=== PATIENT | male | born 1945 | race Caucasian/White ===

== ENCOUNTER 2019-04-21 12:14 | Observation (INO) | payer MEDICARE, BC ==
[~2019-04-21] VITALS: Ht 175.3 cm; Wt 80.0 kg
[~2019-04-21 12:14] MED LIST: ALLO100T PO; BICA50TA4 PO; CA C1TAB89 PO; CEFU500T66 PO; CHOL2000 PO; HYDR-4353 PO; IBUP-1984 PO; LANS30CA37 PO; METF500T PO; METO50TA7 PO; MORP30TA6 PO; MULT-1085 PO; NOR5T PO; VITA400T10 PO; VITC500T PO; ZOF4T PO
[2019-04-21] MEDS ORDERED: aspirin 81mg tab.chew PO ONE (12:35)
[2019-04-21 13:03] LABS: BASOPHILS % (AUTO) 0.6 % (0-1); EOSINOPHILS # (AUTO) 0.1 X10'3 (0-0.9); EOSINOPHILS % (AUTO) 0.8 % (0-6); HEMATOCRIT 31.2 % (42.0-52.0); HEMOGLOBIN 10.3 g/dl (14.0-17.9); LYMPHOCYTES # (AUTO) 1.3 X10'3 (1.1-4.8); MEAN CORPUSCULAR HEMOGLOBIN 29.9 PG (27.0-31.0); MEAN CORPUSCULAR VOLUME 90.6 FL (78-98); MEAN PLATELET VOLUME 7.5 FL (7.4-10.4); MONOCYTES # (AUTO) 0.5 X10'3 (0-0.9); NEUTROPHILS # (AUTO) 5.8 X10'3 (1.8-7.7); NEUTROPHILS % (AUTO) 74.6 % (42-75); PLATELET COUNT 237 X10'3 (140-440); RED BLOOD COUNT 3.44 X10'6 (4.70-6.10); RED CELL DISTRIBUTION WIDTH 16.3 % (11.5-14.5); WHITE BLOOD COUNT 7.8 X10'3 (4.5-11.0)
[2019-04-21 13:14] LABS: PARTIAL THROMBOPLASTIN TIME 28 SECONDS (22-32)
[2019-04-21 13:17] LABS: ALANINE AMINOTRANSFERASE 20 U/L (12-78); ALBUMIN/GLOBULIN RATIO 0.7 (1.1-1.5); ALKALINE PHOSPHATASE 91 IU/L (46-116); ANION GAP 6 (8-16); ASPARTATE AMINO TRANSFERASE 17 U/L (10-37); BILIRUBIN,TOTAL 0.4 MG/DL (0.1-1.0); BLOOD UREA NITROGEN 20 MG/DL (7-18); BUN/CREATININE RATIO 16.9 (5.4-32.0); CALCIUM 8.9 MG/DL (8.5-10.1); CHLORIDE 101 MMOL/L (99-107); CREATININE 1.18 MG/DL (0.60-1.10); GLUCOSE 129 MG/DL (70-104); POTASSIUM 4.1 MMOL/L (3.5-5.1); SODIUM 136 MMOL/L (135-145); TOTAL CARBON DIOXIDE 29.1 MMOL/L (24-32); TOTAL PROTEIN 7.4 G/DL (6.4-8.2); eGFR 61 ML/MIN
[2019-04-21 13:23] LABS: MAGNESIUM 1.6 MG/DL (1.5-2.4)
[2019-04-21] MEDS ORDERED: DENO120V SQ (13:36)
[2019-04-21] MEDS ORDERED: TRAZ-251 PO (13:36)
[2019-04-21] MEDS ORDERED: AMLO2.5T5 PO (13:36)
[2019-04-21] MEDS ORDERED: FERR325T32 PO (13:36)
[2019-04-21] MEDS ORDERED: PRED5TAB49 PO (13:36)
[2019-04-21] MEDS ORDERED: LEUP30KI3 IM (13:36)
[2019-04-21] MEDS ORDERED: ABIR500T PO (13:36)
[2019-04-21] MEDS ORDERED: CALC-463 PO (13:36)
[2019-04-21] MEDS ORDERED: ONDA8TAB12 PO (13:36)
[2019-04-21] MEDS ORDERED: MORP15TA PO (13:36)
[2019-04-21] MEDS ORDERED: MORP30TA60 PO (13:36)
[2019-04-21] MEDS ORDERED: ondansetron/PF 4mg/2ml inj IV PRN (13:45)
[2019-04-21] MEDS ORDERED: potassium Cl 20 mEq SR tablet PO PRN ×2 (13:45)
[2019-04-21] MEDS ORDERED: acetaminophen 325mg tablet PO PRN ×2 (13:45)
[2019-04-21] MEDS ORDERED: HYDROcodone/acetaminophen 10/325mg tab PO PRN (13:45)
[2019-04-21] MEDS ORDERED: metoprolol tartrate 1mg/ml inj IV PRN (13:45)
[2019-04-21] MEDS ORDERED: metoclopramide 5 mg/ml inj IV PRN (13:45)
[2019-04-21] MEDS ORDERED: nitroGLYCERIN 0.4mg SUBLingual tab SL PRN ×2 (13:45)
[2019-04-21] MEDS ORDERED: potassium CL 10mEq/100ml bag 100 ML IV PRN ×2 (13:45)
[2019-04-21] MEDS ORDERED: magnesium Cl slow-release 64mg tablet PO PRN (13:45)
[2019-04-21] MEDS ORDERED: morphine 2 MG/ML inj. syringe IV PRN ×2 (13:45)
[2019-04-21] MEDS ORDERED: HYDROcodone/acetaminophen 5mg/325mg tablet PO PRN (13:45)
[2019-04-21] MEDS ORDERED: aminophylline 250mg/10ml inj. IV PRN (13:45)
[2019-04-21] MEDS ORDERED: magnesium 4gm in 100ml NS 100 ML IV PRN (13:45)
[2019-04-21] MEDS ORDERED: mag hydrox/Alum hydrox/simeth 30ml oral suspension PO PRN (13:45)
[2019-04-21] MEDS ORDERED: magnesium hydroxide 30ml (MOM) UD suspension PO PRN (13:45)
[2019-04-21] MEDS ORDERED: regadenoson 0.4mg/5ml syringe IV ONE (13:45)
[2019-04-21] MEDS: K and/or MAG REPLACEMENT MC SCH (13:45)
[2019-04-21] MEDS ORDERED: magnesium 2GM in 50ml NS 50 ML IV PRN (13:45)
[2019-04-21] MEDS ORDERED: traZODone 50mg tablet PO PRN (13:50)
[2019-04-21] MEDS ORDERED: glucagon, human recombinant 1mg kit SUBCUT PRN (14:00)
[2019-04-21] MEDS ORDERED: MESSAGE TO PHARMACY PO ONE (14:00)
[2019-04-21] MEDS ORDERED: insulin Lispro (HumaLOG) vial - multi-dose SQ SCH (14:00)
[2019-04-21] MEDS ORDERED: dextrose ORAL solution 15 GM/59 ML bottle PO PRN ×2 (14:00)
[2019-04-21] MEDS ORDERED: dextrose 50%-water 50ml dispensing syringe IV PRN ×2 (14:00)
--- NOTE | 2019-04-21 14:09 | NUR ---
Pt taken to CT
[2019-04-21 14:23] VITALS: BP 144/68
[2019-04-21] MEDS ORDERED: pneumococcal 23-VAL P-sac vacc 25 mcg/0.5ml vial IMVAC ONE (14:55)
--- NOTE | 2019-04-21 15:11 | NUR ---
PAGER ID: [phone] MESSAGE: BRANDON Briones: Is he getting a arnold scan today or tomorrow? YECENIA Lubin Ext [phone]
--- NOTE | 2019-04-21 15:14 | NUR ---
PAGER ID: [phone] MESSAGE: [id number] Nathaniel Anselmo: Is his Katie-scan today or tomorrow? YECENIA Lubin Ext [phone]
[2019-04-21 15:39] LABS: HEMOGLOBIN A1C 7.7 % (4.5-6.2)
--- NOTE | 2019-04-21 18:05 | NUR ---
Patient in room PCU 3016. I have received report from Tristian KEENE and had the opportunity to ask questions and assume patient care.
--- NOTE | 2019-04-21 18:07 | NUR ---
Problems reprioritized. Patient report given, questions answered & plan of care reviewed with Rudy RN.
[2019-04-21 19:00] VITALS: BP 130/53
[2019-04-21] MEDS ORDERED: non-formulary drug (Morphine Sulfate 1 TAB) PO SCH (20:00)
[2019-04-21] MEDS: pantoprazole 40mg Tablet.DR PO SCH (20:30)
[2019-04-21] MEDS: metoprolol succinate 25mg (24-HOUR) SR. Tablet PO SCH (20:31)
[2019-04-21] MEDS: morphine ER 30mg tablet PO SCH (20:31)
[2019-04-21] MEDS: predniSONE 5mg tablet PO SCH (20:31)
[2019-04-21] MEDS: heparin, porcine 5000 units/ml vial SQ SCH (20:35)
[2019-04-21] MEDS: ABIRATERONE ACETATE 500 MG PO SCH (20:38)
[2019-04-21] MEDS ORDERED: amLODIPine 2.5mg tablet PO SCH (21:00)
[2019-04-21] MEDS ORDERED: temazepam 15mg capsule PO PRN (21:00)
[2019-04-21] MEDS ORDERED: insulin glargine (Lantus) pen - multi-dose SQ SCH (21:00)
[2019-04-21 23:00] VITALS: BP 117/59
[2019-04-22] VITALS (11 sets, daily range): BP systolic 105–140; BP diastolic 49–82
[2019-04-22 00:58] LABS: HEMATOCRIT 31.6 % (42.0-52.0); HEMOGLOBIN 10.4 g/dl (14.0-17.9); MEAN CORPUSCULAR HEMOGLOBIN 29.7 PG (27.0-31.0); MEAN CORPUSCULAR HGB CONC 32.9 g/dL (33.0-36.5); MEAN CORPUSCULAR VOLUME 90.1 FL (78-98); MEAN PLATELET VOLUME 7.7 FL (7.4-10.4); PLATELET COUNT 201 X10'3 (140-440); RED BLOOD COUNT 3.51 X10'6 (4.70-6.10); RED CELL DISTRIBUTION WIDTH 16.4 % (11.5-14.5); WHITE BLOOD COUNT 6.3 X10'3 (4.5-11.0)
[2019-04-22 01:09] LABS: ANION GAP 7 (8-16); BLOOD UREA NITROGEN 22 MG/DL (7-18); BUN/CREATININE RATIO 17.1 (5.4-32.0); CALCIUM 9.3 MG/DL (8.5-10.1); CHLORIDE 99 MMOL/L (99-107); CHOL/HDL RATIO 4.1 (0.00-4.99); CHOLESTEROL 153 MG/DL (0-200); CREATININE 1.29 MG/DL (0.60-1.10); GLUCOSE 148 MG/DL (70-104); HDL CHOLESTEROL 37 MG/DL (35-60); LDL CHOLESTEROL 92 MG/DL (50-100); MAGNESIUM 1.7 MG/DL (1.5-2.4); PHOSPHORUS 4.4 MG/DL (2.3-4.5); POTASSIUM 4.8 MMOL/L (3.5-5.1); SODIUM 135 MMOL/L (135-145); TOTAL CARBON DIOXIDE 28.6 MMOL/L (24-32); TRIGLYCERIDES 177 MG/DL (20-135); eGFR 55 ML/MIN
--- NOTE | 2019-04-22 06:00 | NUR ---
Patient in room PCU 3016. I have received report from YECENIA Grant and had the opportunity to ask questions and assume patient care.
--- NOTE | 2019-04-22 06:23 | NUR ---
Problems reprioritized. Patient report given, questions answered & plan of care reviewed with Tristian KEENE.
[2019-04-22] MEDS: morphine ER 30mg tablet PO SCH (07:20)
[2019-04-22] MEDS: pantoprazole 40mg Tablet.DR PO SCH (07:20)
[2019-04-22] MEDS: predniSONE 5mg tablet PO SCH (07:21)
[2019-04-22] MEDS: heparin, porcine 5000 units/ml vial SQ SCH (07:22)
[2019-04-22] MEDS: ABIRATERONE ACETATE 500 MG PO SCH (07:47)
[2019-04-22] MEDS ORDERED: ascorbic acid 500mg tablet PO SCH (08:00)
[2019-04-22] MEDS: K and/or MAG REPLACEMENT MC SCH (08:00)
[2019-04-22] MEDS ORDERED: calcium carbonate/vitamin D3 tablet PO SCH (08:00)
[2019-04-22] MEDS ORDERED: allopurinol 300 MG tablet PO SCH (08:00)
--- NOTE | 2019-04-22 08:18 | NUR ---
PAGER ID: [phone] MESSAGE: BRANDON Nathaniel Briones HR in the 40's most of this morning. Patient is asymptotic. YECENIA Lubin Ext [phone] (Cintia has the phone)
[2019-04-22] MEDS ORDERED: aspirin 325mg tablet PO SCH (08:30)
[2019-04-22] MEDS ORDERED: regadenoson 0.4mg/5ml syringe IV ONE (09:00)
[2019-04-22] MEDS: metoprolol succinate 25mg (24-HOUR) SR. Tablet PO SCH (10:50)
[2019-04-22] MEDS ORDERED: aspirin 81mg tab.chew PO SCH (10:51)
--- NOTE | 2019-04-22 10:52 | NUR ---
Held Toprolol this morning per CT. Attempted to administer when the patient returned, but HR was too low.
--- NOTE | 2019-04-22 13:01 | NUR ---
DM consult: Pt with A1c 7.7 seen at bedside with friend present. Pt reports his BG levels are usually around 100 and he takes his Metformin per rx which is 250 mg BID. Pt also reports he has lost weight which has helped with better DM management. Pt with no questions at this time and denies written DM education. RD contact information provided. Pt endorses a good appetite and denies any food allergies, difficulty chewing/swallowing, or constipation/diarrhea. Pt reports he was unable to get breakfast tray d/t testing and refused lunch tray d/t just having a sandwich. RD reviewed dinner and breakfast tray selections with pt which was relayed to dietary. Will continue to follow. Addendum: 04/22/19 at [address] Amended: Links added.
--- NOTE | 2019-04-22 13:10 | NUR ---
PAGER ID: [phone] MESSAGE: [id number] Nathaniel Briones: Katie was negative. YECENIA Lubin Ext [phone]
[2019-04-22] MEDS ORDERED: iohexol 350MG/ML 100ml bottle IV ONE (15:42)
--- NOTE | 2019-04-22 16:29 | NUR ---
PAGER ID: [phone] MESSAGE: [id number] Nathaniel Briones: CTA was negative for pulmonary embolism. Minimal left lower lobe atelectatic changes. YECENIA Ludwig ext [phone]
[2019-04-22] MEDS ORDERED: ASPI-1265 PO (17:22)
--- NOTE | 2019-04-22 17:49 | NUR ---
Gave patient discharge instructions. Educated on incentive spirometer use, Diabetes management, chest pain, and follow up care. IV and Tele removed.
[2019-05-01] MEDS ORDERED: DENOSUMAB SQ SCH (08:00)
== END 2019-04-22 17:49 | disposition home or self-care (01) ==
LOC: ER 12:16 → PCU 3S 14:25
PROVIDERS: ADMIT Family Medicine; ATTEND Family Medicine
DX: I20.9 Angina pectoris, unspecified (principal); G89.29 Other chronic pain; M10.9 Gout, unspecified; J44.9 Chronic obstructive pulmonary disease, unspecified; R31.9 Hematuria, unspecified; C61 Malignant neoplasm of prostate; C79.51 Secondary malignant neoplasm of bone; E78.00 Pure hypercholesterolemia, unspecified; F02.80 Dementia in other diseases classified elsewhere, unspecified severity, without behavioral disturbance, psychotic disturbance, mood disturbance, and anxiety; I25.2 Old myocardial infarction; Z85.46 Personal history of malignant neoplasm of prostate; Z86.010 Personal history of colon polyps; Z86.73 Personal history of transient ischemic attack (TIA), and cerebral infarction without residual deficits; Z86.74 Personal history of sudden cardiac arrest; Z98.890 Other specified postprocedural states; E11.22 Type 2 diabetes mellitus with diabetic chronic kidney disease; I13.0 Hypertensive heart and chronic kidney disease with heart failure and stage 1 through stage 4 chronic kidney disease, or unspecified chronic kidney disease; N18.9 Chronic kidney disease, unspecified; I50.9 Heart failure, unspecified; D63.1 Anemia in chronic kidney disease; Z96.641 Presence of right artificial hip joint; G30.9 Alzheimer's disease, unspecified; R06.00 Dyspnea, unspecified; M25.551 Pain in right hip; Z23 Encounter for immunization
CPT/HCPCS: 36415; 70450; 71045; 71275; 78452; 80048; 80053; 80061; 82948; 83036; 83735; 83880; 84100; 84443; 84484; 85025; 85027; 85610; 85730; 87081; 90471; 90732; 93005; 93017; 93306; 96372; 99284; A9500; G0378; J1644; J2785; J7512; Q9967; J1815

== ENCOUNTER 2019-10-15 10:13 | Emergency (ER) | payer MEDICARE, BC ==
[~2019-10-15] VITALS: Ht 175.3 cm; Wt 68.6 kg
[~2019-10-15 10:13] MED LIST changes: +ABIR500T PO; +AMLO2.5T5 PO; +ASPI-1265 PO; -BICA50TA4 PO; -CA C1TAB89 PO; +CALC-463 PO; -CEFU500T66 PO; +DENO120V SQ; +FERR325T32 PO; -HYDR-4353 PO; -IBUP-1984 PO; +LEUP30KI3 IM; +MORP15TA PO; -MORP30TA6 PO; +MORP30TA60 PO; -NOR5T PO; +ONDA8TAB65 PO; +PRED5TAB49 PO; +TRAZ-251 PO; -ZOF4T PO
[2019-10-15 10:38] VITALS: BP 109/64
[2019-10-15] MEDS ORDERED: LIDOcaine 1% W/epiNEPHrine 1:200,000 10ml vial IJ ONE (11:10)
[2019-10-15] MEDS ORDERED: CEPH250T PO (11:48)
[2019-10-15] MEDS ORDERED: BACDS PO (11:48)
== END 2019-10-15 12:01 | disposition home or self-care (01) ==
LOC: ER 10:14
DX: L02.214 Cutaneous abscess of groin (principal); I10 Essential (primary) hypertension; E11.9 Type 2 diabetes mellitus without complications; G89.29 Other chronic pain; M10.9 Gout, unspecified; Z98.890 Other specified postprocedural states; Z79.899 Other long term (current) drug therapy; Z79.82 Long term (current) use of aspirin
CPT/HCPCS: 10060; 82948; 99283

== ENCOUNTER 2019-10-29 02:31 | Emergency (ER) | payer MEDICARE, BC ==
[~2019-10-29] VITALS: Ht 175.3 cm; Wt 75.0 kg
[2019-10-29 02:44] VITALS: BP 146/75
== END 2019-10-29 03:17 | disposition home or self-care (01) ==
LOC: ER 02:32
DX: Z48.00 Encounter for change or removal of nonsurgical wound dressing (principal); I10 Essential (primary) hypertension; E11.9 Type 2 diabetes mellitus without complications; G89.29 Other chronic pain; Z98.890 Other specified postprocedural states; Z79.82 Long term (current) use of aspirin; Z79.899 Other long term (current) drug therapy
CPT/HCPCS: 99281

== ENCOUNTER 2019-11-03 10:54 | Day surgery (SDC) | payer MEDICARE, BC ==
[2019-11-03] VITALS (7 sets, daily range): BP systolic 121–134; BP diastolic 66–98
[~2019-11-03] VITALS: Ht 175.3 cm; Wt 81.3 kg
[2019-11-03] MEDS ORDERED: LIDOcaine/PRILOcaine 5gm cream TP ONE (13:40)
== END 2019-11-03 15:20 | disposition home or self-care (01) ==
LOC: SSTAY O 10:54
PROVIDERS: ATTEND Radiology Diagnostic Radiology
DX: R19.09 Other intra-abdominal and pelvic swelling, mass and lump (principal); Z85.46 Personal history of malignant neoplasm of prostate
CPT/HCPCS: 10005; 87070; 87077; 87186; 88173; 88305

== ENCOUNTER 2019-12-11 03:10 | Emergency (ER) | payer MEDICARE, BC ==
[~2019-12-11] VITALS: Ht 175.3 cm; Wt 79.4 kg
[~2019-12-11 03:10] MED LIST changes: -ASPI-1265 PO
[2019-12-11 03:15] VITALS: BP 96/60
[2019-12-11] MEDS ORDERED: ketorolac trometh inj. 60 MG/2 ML VIAL IM ONE (03:30)
[2019-12-11] MEDS ORDERED: CLIN-97 PO (03:33)
[2019-12-15] MEDS ORDERED: AMLO-314 PO (14:19)
[2019-12-15] MEDS ORDERED: DENO120V SQ (14:23)
[2019-12-15] MEDS ORDERED: LEUP30KI3 IM (14:23)
== END 2019-12-11 03:41 | disposition home or self-care (01) ==
LOC: ER 03:11
DX: R19.09 Other intra-abdominal and pelvic swelling, mass and lump (principal); M79.651 Pain in right thigh; I10 Essential (primary) hypertension; E11.9 Type 2 diabetes mellitus without complications; G89.29 Other chronic pain; Z98.890 Other specified postprocedural states; Z79.2 Long term (current) use of antibiotics; Z79.899 Other long term (current) drug therapy
CPT/HCPCS: 96372; 99284; J1885; 99283

== ENCOUNTER 2020-06-10 09:55 | Emergency (ER) | payer MEDICARE, BC ==
[~2020-06-10] VITALS: Ht 175.3 cm; Wt 79.6 kg
[~2020-06-10 09:55] MED LIST changes: -AMLO2.5T5 PO
[2020-06-10] MEDS ORDERED: normal saline 1000ML IV soln IVB ONE (10:50)
[2020-06-10 10:59] LABS: CLARITY,URINE CLOUDY (Clear); COLOR,URINE YELLOW (Yellow); GLUCOSE, URINE NEGATIVE (Neg); KETONES,URINE NEGATIVE (Neg); LEUKOCYTE ESTERASE ,URINE LARGE (Neg); NITRITES, URINE NEGATIVE (Neg); OCCULT BLOOD,URINE LARGE (Neg); PROTEIN,URINE 100 mg/dl (Neg)
[2020-06-10 11:02] LABS: UA COLLECTION TYPE URINAL
[2020-06-10 11:03] VITALS: BP 105/52
[2020-06-10 11:03] LABS: WBC,URINE 50-100 /HPF (0-4)
[2020-06-10 11:04] LABS: BACTERIA,URINE 2+ /HPF (Neg); MUCUS STRANDS FEW /LPF (Neg); SQUAMOUS EPITHELIAL CELL,UR MODERATE /LPF (FEW)
[2020-06-10 11:20] LABS: EOSINOPHILS # (AUTO) 0.1 X10'3 (0-0.9); LYMPHOCYTES # (AUTO) 1.3 X10'3 (1.1-4.8); MEAN PLATELET VOLUME 7.3 FL (7.4-10.4); MONOCYTES # (AUTO) 0.4 X10'3 (0-0.9)
[2020-06-10 11:22] LABS: BASOPHILS % (AUTO) 0.8 % (0-1); EOSINOPHILS % (AUTO) 0.9 % (0-6); HEMATOCRIT 23.9 % (42.0-52.0); LYMPHOCYTES % (AUTO) 23.5 % (21-51); MEAN CORPUSCULAR HEMOGLOBIN 28.7 PG (27.0-31.0); MEAN CORPUSCULAR HGB CONC 33.7 g/dL (33.0-36.5); MEAN CORPUSCULAR VOLUME 85.3 FL (78-98); MONOCYTES % (AUTO) 6.7 % (2-12); NEUTROPHILS # (AUTO) 3.9 X10'3 (1.8-7.7); NEUTROPHILS % (AUTO) 68.1 % (42-75); PLATELET COUNT 195 X10'3 (140-440); RED CELL DISTRIBUTION WIDTH 18.8 % (11.5-14.5); WHITE BLOOD COUNT 5.7 X10'3 (4.5-11.0)
[2020-06-10 11:37] LABS: ANISOCYTOSIS 2+; PLATELET ESTIMATE NORMAL
[2020-06-10 11:40] LABS: ANION GAP 4 (8-16); BLOOD UREA NITROGEN 33 MG/DL (7-18); CHLORIDE 95 MMOL/L (99-107); CREATININE 1.95 MG/DL (0.60-1.10); GLUCOSE 104 MG/DL (70-104); POTASSIUM 4.6 MMOL/L (3.5-5.1); SODIUM 128 MMOL/L (135-145); TOTAL CARBON DIOXIDE 29.1 MMOL/L (24-32)
[2020-06-10 11:41] LABS: ALANINE AMINOTRANSFERASE 7 U/L (12-78); ALBUMIN 2.8 G/DL (3.4-5.0); ALBUMIN/GLOBULIN RATIO 0.7 (1.1-1.5); ALKALINE PHOSPHATASE 111 IU/L (46-116); ASPARTATE AMINO TRANSFERASE 25 U/L (10-37); BILIRUBIN,TOTAL 0.3 MG/DL (0.1-1.0); BUN/CREATININE RATIO 16.9 (5.4-32.0); CALCIUM 8.9 MG/DL (8.5-10.1); TOTAL PROTEIN 6.9 G/DL (6.4-8.2); eGFR 34 ML/MIN
[2020-06-10 11:42] LABS: PARTIAL THROMBOPLASTIN TIME 30 SECONDS (22-32)
[2020-06-10] MEDS ORDERED: CefTRIAXone 2gm/D5W 50ml BAG 50 ML IV ONE (11:50)
[2020-06-10] MEDS ORDERED: ciprofloxacin 250mg tablet PO ONE (12:35)
[2020-06-10] MEDS ORDERED: CIPR-230 PO (12:43)
[2020-06-10] MEDS ORDERED: ondansetron 4mg rapidly disintigrating tab PO ONE ×2 (12:45→13:15)
--- NOTE | 2020-06-15 09:58 | NUR ---
left message for pt. to call back. pt. called back has already seen his pmd. dr. haider. who changed his antibiotic to doxycycline that is working for him... no other action to be taken..
== END 2020-06-10 13:27 | disposition home or self-care (01) ==
LOC: ER 09:55
DX: N12 Tubulo-interstitial nephritis, not specified as acute or chronic (principal); I50.9 Heart failure, unspecified; N18.9 Chronic kidney disease, unspecified; E78.00 Pure hypercholesterolemia, unspecified; G89.29 Other chronic pain; N17.9 Acute kidney failure, unspecified; E11.22 Type 2 diabetes mellitus with diabetic chronic kidney disease; I13.2 Hypertensive heart and chronic kidney disease with heart failure and with stage 5 chronic kidney disease, or end stage renal disease; R42 Dizziness and giddiness; Z85.9 Personal history of malignant neoplasm, unspecified; Z98.890 Other specified postprocedural states; Z79.899 Other long term (current) drug therapy
CPT/HCPCS: 36415; 71045; 74176; 80053; 81001; 83605; 83880; 84145; 84484; 85025; 85610; 85730; 87040; 87077; 87088; 87186; 93005; 96361; 96365; 99285; J0696; J7030; 85008

== ENCOUNTER 2020-12-28 09:43 | Emergency (ER) | payer MEDICARE, BC ==
[~2020-12-28] VITALS: Ht 170.2 cm; Wt 79.5 kg
[2020-12-28 09:58] VITALS: BP 118/62
[2020-12-28 10:18] LABS: CLARITY,URINE TURBID (Clear); COLOR,URINE YELLOW (Yellow); GLUCOSE, URINE NEGATIVE (Neg); KETONES,URINE NEGATIVE (Neg); LEUKOCYTE ESTERASE ,URINE LARGE (Neg); NITRITES, URINE NEGATIVE (Neg); OCCULT BLOOD,URINE LARGE (Neg); PROTEIN,URINE 30 mg/dl (Neg); UROBILINOGEN,URINE 0.2 E.U/dL (0.2-1.0)
[2020-12-28 10:23] LABS: UA COLLECTION TYPE NON-SPECIFIED
[2020-12-28 10:29] LABS: WBC,URINE TNTC /HPF (0-4)
[2020-12-28 10:30] LABS: BACTERIA,URINE 1+ /HPF (Neg); MUCUS STRANDS NONE SEEN /LPF (Neg); RBC,URINE 20-50 /HPF (0-2); SQUAMOUS EPITHELIAL CELL,UR FEW /LPF (FEW); TRANSITIONAL EPI CELLS,URINE FEW /HPF; WBC CLUMPS,URINE MANY /HPF (NEGATIVE); YEAST MODERATE /HPF (NEGATIVE)
[2020-12-28] MEDS ORDERED: CefTRIAXone 1000mg IM Kit (w/lidocaine diluent) IM ONE (10:40)
[2020-12-28] MEDS ORDERED: CEPH-585 PO (10:40)
--- NOTE | 2020-12-28 11:10 | NUR ---
Bladder scan 130ml. Dr. Goff aware.
== END 2020-12-28 11:24 | disposition home or self-care (01) ==
LOC: ER 09:43
DX: N39.0 Urinary tract infection, site not specified (principal); R11.0 Nausea; E78.00 Pure hypercholesterolemia, unspecified; I10 Essential (primary) hypertension; E11.9 Type 2 diabetes mellitus without complications; G89.29 Other chronic pain; M10.9 Gout, unspecified; Z85.9 Personal history of malignant neoplasm, unspecified; Z98.890 Other specified postprocedural states; Z79.2 Long term (current) use of antibiotics; Z79.899 Other long term (current) drug therapy
CPT/HCPCS: 81001; 87088; 96372; 99284; J0696

== ENCOUNTER 2021-02-20 09:57 | Day surgery (SDC) | payer MEDICARE, BC ==
[2021-02-19 12:03] LABS: EOSINOPHILS # (AUTO) 0.1 X10'3 (0-0.9); EOSINOPHILS % (AUTO) 1.5 % (0-6); HEMOGLOBIN 8.8 g/dl (14.0-17.9); LYMPHOCYTES # (AUTO) 1.7 X10'3 (1.1-4.8); MONOCYTES # (AUTO) 0.4 X10'3 (0-0.9); NEUTROPHILS % (AUTO) 74.6 % (42-75)
[2021-02-19 12:04] LABS: BASOPHILS # (AUTO) 0.1 X10'3 (0-0.2); BASOPHILS % (AUTO) 0.6 % (0-1); HEMATOCRIT 27.3 % (42.0-52.0); MEAN CORPUSCULAR HEMOGLOBIN 27.3 PG (27.0-31.0); MEAN CORPUSCULAR HGB CONC 32.3 g/dL (33.0-36.5); MEAN CORPUSCULAR VOLUME 84.3 FL (78-98); MEAN PLATELET VOLUME 7.5 FL (7.4-10.4); MONOCYTES % (AUTO) 4.3 % (2-12); NEUTROPHILS # (AUTO) 6.9 X10'3 (1.8-7.7); PLATELET COUNT 301 X10'3 (140-440); RED BLOOD COUNT 3.23 X10'6 (4.70-6.10); RED CELL DISTRIBUTION WIDTH 16.7 % (11.5-14.5); WHITE BLOOD COUNT 9.2 X10'3 (4.5-11.0)
[2021-02-19 12:19] LABS: ALBUMIN 2.9 G/DL (3.4-5.0); ANION GAP 8 (8-16); BLOOD UREA NITROGEN 22 MG/DL (7-18); BUN/CREATININE RATIO 21.2 (5.4-32.0); CHLORIDE 101 MMOL/L (99-107); CREATININE 1.04 MG/DL (0.60-1.10); GLUCOSE 84 MG/DL (70-104); POTASSIUM 4.5 MMOL/L (3.5-5.1); SODIUM 139 MMOL/L (135-145); eGFR 70 ML/MIN
[2021-02-19 12:23] LABS: PARTIAL THROMBOPLASTIN TIME 29 SECONDS (22-32)
[~2021-02-20] VITALS: Ht 170.2 cm; Wt 81.4 kg
[2021-02-20] VITALS (11 sets, daily range): BP systolic 125–146; BP diastolic 62–79
[~2021-02-20 09:57] MED LIST changes: +CEPH-585 PO
[2021-02-20] MEDS ORDERED: normal saline 1,000 ML IV SCH ×2 (10:30→15:05)
[2021-02-20] MEDS ORDERED: LORazepam 0.5 MG tablet PO PRN (10:30)
[2021-02-20] MEDS ORDERED: diphenhydrAMINE 25mg capsule PO PRN (10:30)
[2021-02-20] MEDS ORDERED: AMLO10TA PO (11:08)
[2021-02-20] MEDS ORDERED: midazolam 1 mg/ML 2ml injection ONE (11:26)
[2021-02-20] MEDS ORDERED: fentaNYL/PF 50MCG/1 ML 2ML syringe ONE (11:26)
[2021-02-20] MEDS ORDERED: verapamil 2.5 mg/ml inj IV ONE (11:27)
[2021-02-20] MEDS ORDERED: iohexol 350 MG/ML 50ML vial IV ONE ×2 (11:27→13:02)
[2021-02-20] MEDS ORDERED: LIDOcaine 1% (10mg/ml)w/preservative injection 20ml MDV ONE (11:27)
[2021-02-20] MEDS ORDERED: iohexol 350MG/ML 100ml bottle IV ONE ×2 (11:27→13:13)
[2021-02-20] MEDS ORDERED: heparin 1,000unit/ml 10ml vial 10 ML ONE (11:27)
[2021-02-20] MEDS ORDERED: nitroGLYCERIN-Tridil 50MG/D5W 250 ML IV ONE (11:32)
[2021-02-20] MEDS ORDERED: heparin 25,000 UNIT/250ml bag 250 ML IV ONE (13:15)
[2021-02-20] MEDS ORDERED: heparin 1,000 UNITS/NS 500ml 500 ML ONE (13:24)
[2021-02-20 13:29] LABS: ISTAT HGB ART 7.5 g/dl (14.0-18.0); ISTAT Hct ART 22 %PCV (42-52); ISTAT O2 SATURATION ARTERIAL 94 % (95-98); ISTAT SOURCE ART
[2021-02-20] MEDS ORDERED: clopidogrel 300mg tablet ONE (13:53)
[2021-02-20 14:20] LABS: ISTAT Hct MIX 23 %PCV (42-52); ISTAT O2 SATURATION MIX VENOUS 63 % (60-80); ISTAT SOURCE VEN
[2021-02-20] MEDS ORDERED: OXAZEpam 15mg capsule PO PRN (15:05)
[2021-02-20] MEDS ORDERED: magnesium hydroxide 30ml (MOM) UD suspension PO PRN (15:05)
[2021-02-20] MEDS ORDERED: acetaminophen 325mg tablet PO PRN ×2 (15:05)
[2021-02-20] MEDS ORDERED: cyclobenzaprine 10mg tablet PO PRN (15:05)
[2021-02-20] MEDS ORDERED: HYDROcodone/acetaminophen 5mg/325mg tablet PO PRN (15:05)
[2021-02-20] MEDS ORDERED: HYDROcodone/acetaminophen 10/325mg tab PO PRN (15:05)
[2021-02-20] MEDS ORDERED: proCHLORperazine 10 MG/2 ml inj IV PRN (15:05)
[2021-02-20] MEDS ORDERED: docusate sod 100mg capsule PO SCH (20:00)
[2021-02-21] MEDS ORDERED: clopidogrel 75mg tablet PO SCH (08:00)
[2021-02-21] MEDS ORDERED: aspirin 81mg tablet.DR PO SCH (08:00)
== END 2021-02-20 19:55 | disposition home or self-care (01) ==
LOC: SSTAY O 09:57
PROVIDERS: ATTEND Internal Medicine Cardiovascular Disease
DX: R94.39 Abnormal result of other cardiovascular function study (principal); R06.02 Shortness of breath; R53.83 Other fatigue; I25.10 Atherosclerotic heart disease of native coronary artery without angina pectoris; I10 Essential (primary) hypertension; E78.5 Hyperlipidemia, unspecified; E11.9 Type 2 diabetes mellitus without complications; G47.30 Sleep apnea, unspecified; E66.9 Obesity, unspecified; Z68.28 Body mass index [BMI] 28.0-28.9, adult; M10.9 Gout, unspecified; Z87.891 Personal history of nicotine dependence; Z79.84 Long term (current) use of oral hypoglycemic drugs; Z79.899 Other long term (current) drug therapy; Z85.830 Personal history of malignant neoplasm of bone; Z85.46 Personal history of malignant neoplasm of prostate
CPT/HCPCS: 36415; 76937; 80048; 82803; 82948; 85014; 85025; 85347; 85610; 85730; 93005; 93460; 99152; 99153; C1725; C1751; C1760; C1769; C1874; C1894; C9600; J1644; J2001; J2250; J3010; J7030; Q0163; Q9967; A5120; A6258; J3490

== ENCOUNTER 2021-02-21 13:54 | Outpatient (CLI) | payer MEDICARE, BC ==
[~2021-02-21 13:54] MED LIST changes: +AMLO10TA PO; -CEPH-585 PO; -MORP30TA60 PO
[2021-02-21 15:56] LABS: ALANINE AMINOTRANSFERASE 26 U/L (12-78); ALBUMIN 2.9 G/DL (3.4-5.0); ALBUMIN/GLOBULIN RATIO 0.6 (1.1-1.5); ALKALINE PHOSPHATASE 98 IU/L (46-116); ANION GAP 9 (8-16); ASPARTATE AMINO TRANSFERASE 19 U/L (10-37); BILIRUBIN,TOTAL 0.3 MG/DL (0.1-1.0); BLOOD UREA NITROGEN 20 MG/DL (7-18); BUN/CREATININE RATIO 16.9 (5.4-32.0); CALCIUM 8.7 MG/DL (8.5-10.1); CHLORIDE 99 MMOL/L (99-107); CHOL/HDL RATIO 3.3 (0.00-4.99); CHOLESTEROL 150 MG/DL (0-200); CREATININE 1.18 MG/DL (0.60-1.10); GLUCOSE 122 MG/DL (70-104); HDL CHOLESTEROL 46 MG/DL (35-60); LDL CHOLESTEROL 83 MG/DL (50-100); POTASSIUM 4.4 MMOL/L (3.5-5.1); SODIUM 136 MMOL/L (135-145); TOTAL CARBON DIOXIDE 28.4 MMOL/L (24-32); TRIGLYCERIDES 89 MG/DL (20-135); eGFR 60 ML/MIN
== END 2021-02-21 23:59 | disposition home or self-care (01) ==
LOC: LAB 13:54
PROVIDERS: ATTEND Internal Medicine Cardiovascular Disease
DX: E78.5 Hyperlipidemia, unspecified (principal)
CPT/HCPCS: 36415; 80053; 80061

== ENCOUNTER 2021-03-06 06:13 | Day surgery (SDC) | payer MEDICARE, BC ==
[2021-03-05 13:00] LABS: EOSINOPHILS # (AUTO) 0.1 X10'3 (0-0.9); LYMPHOCYTES # (AUTO) 1.7 X10'3 (1.1-4.8); MEAN PLATELET VOLUME 7.2 FL (7.4-10.4); NEUTROPHILS # (AUTO) 7.5 X10'3 (1.8-7.7)
[2021-03-05 13:01] LABS: BASOPHILS % (AUTO) 0.4 % (0-1); HEMATOCRIT 27.6 % (42.0-52.0); LYMPHOCYTES % (AUTO) 17.5 % (21-51); MEAN CORPUSCULAR HEMOGLOBIN 27.5 PG (27.0-31.0); MEAN CORPUSCULAR HGB CONC 32.7 g/dL (33.0-36.5); MEAN CORPUSCULAR VOLUME 84.2 FL (78-98); MONOCYTES # (AUTO) 0.3 X10'3 (0-0.9); MONOCYTES % (AUTO) 3.4 % (2-12); NEUTROPHILS % (AUTO) 77.7 % (42-75); PLATELET COUNT 291 X10'3 (140-440); RED BLOOD COUNT 3.28 X10'6 (4.70-6.10); RED CELL DISTRIBUTION WIDTH 17.4 % (11.5-14.5); WHITE BLOOD COUNT 9.7 X10'3 (4.5-11.0)
[2021-03-05 13:17] LABS: ALBUMIN 3.2 G/DL (3.4-5.0); ANION GAP 8 (8-16); BLOOD UREA NITROGEN 22 MG/DL (7-18); BUN/CREATININE RATIO 18.6 (5.4-32.0); CALCIUM 9.3 MG/DL (8.5-10.1); CHLORIDE 99 MMOL/L (99-107); CREATININE 1.18 MG/DL (0.60-1.10); GLUCOSE 132 MG/DL (70-104); POTASSIUM 4.8 MMOL/L (3.5-5.1); SODIUM 135 MMOL/L (135-145); TOTAL CARBON DIOXIDE 28.3 MMOL/L (24-32); eGFR 60 ML/MIN
[2021-03-05 13:23] LABS: ANISOCYTOSIS 1+; PLATELET ESTIMATE NORMAL
[2021-03-05 13:24] LABS: HYPOCHROMASIA 1+
[~2021-03-06] VITALS: Ht 170.2 cm; Wt 79.7 kg
[2021-03-06] VITALS (13 sets, daily range): BP systolic 100–165; BP diastolic 48–70
[2021-03-06] MEDS ORDERED: LIDOcaine/PRILOcaine 5gm cream TP ONE (06:30)
[2021-03-06] MEDS ORDERED: LORazepam 0.5 MG tablet PO PRN (06:30)
[2021-03-06] MEDS ORDERED: diphenhydrAMINE 25mg capsule PO PRN (06:30)
[2021-03-06] MEDS ORDERED: MORP30TA PO (07:01)
[2021-03-06] MEDS ORDERED: FERR142T7 PO (07:01)
[2021-03-06] MEDS ORDERED: PRED10TA PO (07:01)
[2021-03-06] MEDS ORDERED: IBUP-1985 PO (07:01)
[2021-03-06] MEDS ORDERED: nitroGLYCERIN-Tridil 50MG/D5W 250 ML IV ONE (07:17)
[2021-03-06] MEDS ORDERED: LIDOcaine 1% (10mg/ml)w/preservative injection 20ml MDV ONE (07:18)
[2021-03-06] MEDS ORDERED: fentaNYL/PF 50MCG/1 ML 2ML syringe ONE (07:18)
[2021-03-06] MEDS ORDERED: iohexol 350 MG/1 ML 200ml bottle ONE (07:18)
[2021-03-06] MEDS ORDERED: verapamil 2.5 mg/ml inj IV ONE (07:18)
[2021-03-06] MEDS ORDERED: midazolam 1 mg/ML 2ml injection ONE (07:18)
[2021-03-06] MEDS ORDERED: heparin 1,000unit/ml 10ml vial 10 ML ONE (07:18)
[2021-03-06 07:25] LABS: PARTIAL THROMBOPLASTIN TIME 27 SECONDS (22-32)
[2021-03-06] MEDS ORDERED: heparin 25,000 UNIT/250ml bag 250 ML IV ONE (08:13)
[2021-03-06] MEDS ORDERED: iohexol 350 MG/ML 50ML vial IV ONE (09:19)
[2021-03-06] MEDS ORDERED: clopidogrel 300mg tablet ONE (09:24)
[2021-03-06] MEDS: normal saline 1,000 ML IV SCH ×2 (10:00→15:32)
[2021-03-06] MEDS ORDERED: cyclobenzaprine 10mg tablet PO PRN (10:25)
[2021-03-06] MEDS ORDERED: OXAZEpam 15mg capsule PO PRN (10:25)
[2021-03-06] MEDS ORDERED: proCHLORperazine 10 MG/2 ml inj IV PRN (10:25)
[2021-03-06] MEDS ORDERED: magnesium hydroxide 30ml (MOM) UD suspension PO PRN (10:25)
[2021-03-06] MEDS ORDERED: HYDROcodone/acetaminophen 10/325mg tab PO PRN ×2 (10:25)
[2021-03-06] MEDS ORDERED: acetaminophen 325mg tablet PO PRN ×2 (10:25)
[2021-03-06] MEDS ORDERED: acetylcysteine 200 MG/ml 4ml vial PO ONE ×2 (10:30→16:00)
[2021-03-06] MEDS ORDERED: aspirin 81mg tab.chew PO ONE (10:30)
--- NOTE | 2021-03-06 15:00 | NUR ---
UPDATED DR. NICHOLS VIA TELEPHONE ON PATIENTS CONDITION. PER MD PATIENT TO BE EDUCATED ON IMPORTANCE OF TAKING ALL MEDICATIONS DIRECTED, ESPECIALLY PLAVIX TO PREVENT CLOTS. Addendum: 03/06/21 at 1816 by Michelle Stanford RN PER MD, PATIENT ABLE TO GO HOME AT 1800
[2021-03-06] MEDS ORDERED: docusate sod 100mg capsule PO SCH (20:00)
[2021-03-07] MEDS ORDERED: aspirin 81mg tablet.DR PO SCH (08:00)
[2021-03-07] MEDS ORDERED: clopidogrel 75mg tablet PO SCH (08:00)
== END 2021-03-06 17:55 | disposition home or self-care (01) ==
LOC: SSTAY O 06:13
PROVIDERS: ATTEND Internal Medicine Cardiovascular Disease
DX: R53.83 Other fatigue (principal); R06.02 Shortness of breath; I25.10 Atherosclerotic heart disease of native coronary artery without angina pectoris; I10 Essential (primary) hypertension; E11.9 Type 2 diabetes mellitus without complications; E78.5 Hyperlipidemia, unspecified; G47.30 Sleep apnea, unspecified; Z79.899 Other long term (current) drug therapy; Z87.891 Personal history of nicotine dependence; Z72.89 Other problems related to lifestyle; Z98.890 Other specified postprocedural states; Z96.641 Presence of right artificial hip joint; Z79.01 Long term (current) use of anticoagulants
CPT/HCPCS: 36415; 80048; 82948; 85025; 85347; 85610; 85730; 93005; 99152; 99153; C1725; C1751; C1769; C1874; C1894; C9600; J1644; J2001; J2250; J3010; J7030; J7040; Q9967; 85008; A4620; A6258; C9601; J3490

== ENCOUNTER 2021-06-17 09:09 | Emergency (ER) | payer MEDICARE, BC ==
[~2021-06-17] VITALS: Ht 170.2 cm; Wt 72.7 kg
[~2021-06-17 09:09] MED LIST changes: +FERR142T7 PO; -FERR325T32 PO; +IBUP-1985 PO; +MORP30TA PO; +PRED10TA PO; -PRED5TAB49 PO
[2021-06-17 10:07] LABS: BASOPHILS % (AUTO) 0.3 % (0-1); EOSINOPHILS # (AUTO) 0.1 X10'3 (0-0.9); EOSINOPHILS % (AUTO) 1.6 % (0-6); HEMATOCRIT 31.6 % (42.0-52.0); HEMOGLOBIN 10.5 g/dl (14.0-17.9); LYMPHOCYTES # (AUTO) 1.7 X10'3 (1.1-4.8); LYMPHOCYTES % (AUTO) 21.8 % (21-51); MEAN CORPUSCULAR HEMOGLOBIN 27.7 PG (27.0-31.0); MEAN CORPUSCULAR HGB CONC 33.4 g/dL (33.0-36.5); MEAN CORPUSCULAR VOLUME 83.2 FL (78-98); MEAN PLATELET VOLUME 8.7 FL (7.4-10.4); MONOCYTES # (AUTO) 0.3 X10'3 (0-0.9); MONOCYTES % (AUTO) 3.4 % (2-12); NEUTROPHILS # (AUTO) 5.8 X10'3 (1.8-7.7); NEUTROPHILS % (AUTO) 72.9 % (42-75); PLATELET COUNT 195 X10'3 (140-440); RED CELL DISTRIBUTION WIDTH 18.6 % (11.5-14.5)
[2021-06-17 10:23] LABS: ALANINE AMINOTRANSFERASE 20 U/L (12-78); ALBUMIN 3.8 G/DL (3.4-5.0); ALBUMIN/GLOBULIN RATIO 0.8 (1.1-1.5); ALKALINE PHOSPHATASE 110 IU/L (46-116); ANION GAP 11 (8-16); ASPARTATE AMINO TRANSFERASE 20 U/L (10-37); BILIRUBIN,TOTAL 0.3 MG/DL (0.1-1.0); BLOOD UREA NITROGEN 29 MG/DL (7-18); CALCIUM 9.6 MG/DL (8.5-10.1); CHLORIDE 99 MMOL/L (99-107); CREATININE 1.61 MG/DL (0.60-1.10); GLUCOSE 137 MG/DL (70-104); POTASSIUM 4.1 MMOL/L (3.5-5.1); SODIUM 135 MMOL/L (135-145); TOTAL CARBON DIOXIDE 25.1 MMOL/L (24-32); TOTAL PROTEIN 8.4 G/DL (6.4-8.2); eGFR 42 ML/MIN
[2021-06-17 10:42] LABS: ANISOCYTOSIS 2+; PLATELET ESTIMATE NORMAL; POLYCHROMASIA FEW; STOMATOCYTES FEW
[2021-06-17 11:56] VITALS: BP 115/61
== END 2021-06-17 12:01 | disposition home or self-care (01) ==
LOC: ER 09:10
DX: R06.02 Shortness of breath (principal); R07.89 Other chest pain; R53.83 Other fatigue; I25.810 Atherosclerosis of coronary artery bypass graft(s) without angina pectoris; E78.00 Pure hypercholesterolemia, unspecified; I10 Essential (primary) hypertension; E11.9 Type 2 diabetes mellitus without complications; G89.29 Other chronic pain; M81.0 Age-related osteoporosis without current pathological fracture; Z87.440 Personal history of urinary (tract) infections; Z98.890 Other specified postprocedural states; Z85.9 Personal history of malignant neoplasm, unspecified; Z86.19 Personal history of other infectious and parasitic diseases; Z79.899 Other long term (current) drug therapy; Z87.01 Personal history of pneumonia (recurrent)
CPT/HCPCS: 36415; 71045; 80053; 83880; 84484; 85008; 85025; 93005; 99285

== ENCOUNTER 2022-01-27 09:44 | Outpatient (CLI) | payer MEDICARE, BC ==
[~2022-01-27 09:44] MED LIST changes: +FERR142T13 PO; -FERR142T7 PO; +ONDA-104 PO; -ONDA8TAB65 PO; -TRAZ-251 PO
== END 2022-01-27 23:59 | disposition home or self-care (01) ==
LOC: RAD 09:44
DX: R10.11 Right upper quadrant pain (principal); R11.0 Nausea
CPT/HCPCS: 76700

== ENCOUNTER 2022-03-10 12:29 | Emergency (ER) | payer MEDICARE, BC ==
[~2022-03-10] VITALS: Ht 170.2 cm; Wt 70.5 kg
[2022-03-10 13:47] VITALS: BP 117/52
[2022-03-10 14:25] LABS: BASOPHILS % (AUTO) 0.5 % (0-1); EOSINOPHILS # (AUTO) 0.1 X10'3 (0-0.9); EOSINOPHILS % (AUTO) 2.7 % (0-6); HEMATOCRIT 24.7 % (42.0-52.0); LYMPHOCYTES # (AUTO) 0.9 X10'3 (1.1-4.8); LYMPHOCYTES % (AUTO) 23.9 % (21-51); MEAN CORPUSCULAR HEMOGLOBIN 30.1 PG (27.0-31.0); MEAN CORPUSCULAR HGB CONC 32.5 g/dL (33.0-36.5); MEAN CORPUSCULAR VOLUME 92.4 FL (78-98); MEAN PLATELET VOLUME 7.2 FL (7.4-10.4); MONOCYTES # (AUTO) 0.2 X10'3 (0-0.9); MONOCYTES % (AUTO) 6.5 % (2-12); NEUTROPHILS # (AUTO) 2.4 X10'3 (1.8-7.7); NEUTROPHILS % (AUTO) 66.4 % (42-75); PLATELET COUNT 187 X10'3 (140-440); RED BLOOD COUNT 2.67 X10'6 (4.70-6.10); RED CELL DISTRIBUTION WIDTH 16.4 % (11.5-14.5); WHITE BLOOD COUNT 3.7 X10'3 (4.5-11.0)
[2022-03-10 14:37] LABS: ALANINE AMINOTRANSFERASE 16 U/L (12-78); ALBUMIN 2.9 G/DL (3.4-5.0); ALBUMIN/GLOBULIN RATIO 0.6 (1.1-1.5); ALKALINE PHOSPHATASE 83 IU/L (46-116); ANION GAP 7 (8-16); ASPARTATE AMINO TRANSFERASE 25 U/L (10-37); BILIRUBIN,TOTAL 0.2 MG/DL (0.1-1.0); BLOOD UREA NITROGEN 27 MG/DL (7-18); BUN/CREATININE RATIO 15.9 (5.4-32.0); CALCIUM 9.4 MG/DL (8.5-10.1); CHLORIDE 101 MMOL/L (99-107); GLUCOSE 121 MG/DL (70-104); POTASSIUM 4.8 MMOL/L (3.5-5.1); SODIUM 135 MMOL/L (135-145); TOTAL CARBON DIOXIDE 27.2 MMOL/L (24-32); TOTAL PROTEIN 7.7 G/DL (6.4-8.2); eGFR 39 ML/MIN
== END 2022-03-10 17:49 | disposition left against medical advice (07) ==
LOC: ER 12:30
DX: R11.10 Vomiting, unspecified (principal); Z53.21 Procedure and treatment not carried out due to patient leaving prior to being seen by health care provider
CPT/HCPCS: 36415; 71045; 80053; 83880; 84484; 85025; 86885; 86900; 86901

== ENCOUNTER 2022-03-11 00:54 | Emergency (ER) | payer MEDICARE, BC ==
[~2022-03-11] VITALS: Ht 170.2 cm; Wt 70.5 kg
[2022-03-11 01:51] LABS: BASOPHILS % (AUTO) 0.6 % (0-1); EOSINOPHILS # (AUTO) 0.1 X10'3 (0-0.9); EOSINOPHILS % (AUTO) 3.1 % (0-6); HEMATOCRIT 25.5 % (42.0-52.0); HEMOGLOBIN 8.3 g/dl (14.0-17.9); LYMPHOCYTES # (AUTO) 1.4 X10'3 (1.1-4.8); LYMPHOCYTES % (AUTO) 31.7 % (21-51); MEAN CORPUSCULAR HEMOGLOBIN 30.3 PG (27.0-31.0); MEAN CORPUSCULAR HGB CONC 32.7 g/dL (33.0-36.5); MEAN CORPUSCULAR VOLUME 92.6 FL (78-98); MEAN PLATELET VOLUME 7.6 FL (7.4-10.4); MONOCYTES # (AUTO) 0.3 X10'3 (0-0.9); MONOCYTES % (AUTO) 6.5 % (2-12); NEUTROPHILS # (AUTO) 2.5 X10'3 (1.8-7.7); NEUTROPHILS % (AUTO) 58.1 % (42-75); PLATELET COUNT 196 X10'3 (140-440); RED BLOOD COUNT 2.75 X10'6 (4.70-6.10); RED CELL DISTRIBUTION WIDTH 16.3 % (11.5-14.5); WHITE BLOOD COUNT 4.4 X10'3 (4.5-11.0)
[2022-03-11 02:06] LABS: ALANINE AMINOTRANSFERASE 17 U/L (12-78); ALBUMIN 2.9 G/DL (3.4-5.0); ALBUMIN/GLOBULIN RATIO 0.6 (1.1-1.5); ALKALINE PHOSPHATASE 88 IU/L (46-116); ANION GAP 11 (8-16); ASPARTATE AMINO TRANSFERASE 21 U/L (10-37); BILIRUBIN,TOTAL 0.2 MG/DL (0.1-1.0); BLOOD UREA NITROGEN 25 MG/DL (7-18); BUN/CREATININE RATIO 15.7 (5.4-32.0); CALCIUM 9.3 MG/DL (8.5-10.1); CHLORIDE 101 MMOL/L (99-107); CREATININE 1.59 MG/DL (0.60-1.10); GLUCOSE 131 MG/DL (70-104); LIPASE < 50 U/L (73-393); POTASSIUM 4.5 MMOL/L (3.5-5.1); SODIUM 138 MMOL/L (135-145); TOTAL CARBON DIOXIDE 26.3 MMOL/L (24-32); TOTAL PROTEIN 7.6 G/DL (6.4-8.2); eGFR 43 ML/MIN
[2022-03-11] MEDS ORDERED: normal saline 1000ML IV soln IV ONE (03:40)
[2022-03-11] MEDS ORDERED: proCHLORperazine 10 MG/2 ml inj IV ONE (03:40)
[2022-03-11] MEDS ORDERED: HYDROcodone/acetaminophen 10/325mg tab PO ONE (05:15)
[2022-03-11 05:57] VITALS: BP 118/74
== END 2022-03-11 05:59 | disposition home or self-care (01) ==
LOC: ER 00:55
DX: R11.2 Nausea with vomiting, unspecified (principal); G89.29 Other chronic pain; I25.10 Atherosclerotic heart disease of native coronary artery without angina pectoris; E78.00 Pure hypercholesterolemia, unspecified; I10 Essential (primary) hypertension; E11.9 Type 2 diabetes mellitus without complications; M10.9 Gout, unspecified; Z87.440 Personal history of urinary (tract) infections; Z85.9 Personal history of malignant neoplasm, unspecified; Z98.890 Other specified postprocedural states; Z79.899 Other long term (current) drug therapy
CPT/HCPCS: 36415; 80053; 83690; 85025; 99284; J7030; J7040

== ENCOUNTER 2022-09-12 14:23 | Emergency (ER) | payer MEDICARE, BC ==
[~2022-09-12] VITALS: Ht 170.2 cm; Wt 70.0 kg
[2022-09-12 14:46] LABS: BASOPHILS % (AUTO) 0.9 % (0-1); EOSINOPHILS % (AUTO) 0.5 % (0-6); HEMATOCRIT 28.8 % (42.0-52.0); LYMPHOCYTES # (AUTO) 1.5 X10'3 (1.1-4.8); LYMPHOCYTES % (AUTO) 27.8 % (21-51); MEAN CORPUSCULAR HEMOGLOBIN 26.9 PG (27.0-31.0); MEAN CORPUSCULAR HGB CONC 31.3 g/dL (33.0-36.5); MEAN CORPUSCULAR VOLUME 85.7 FL (78-98); MEAN PLATELET VOLUME 7.7 FL (7.4-10.4); MONOCYTES # (AUTO) 0.2 X10'3 (0-0.9); MONOCYTES % (AUTO) 2.8 % (2-12); NEUTROPHILS # (AUTO) 3.7 X10'3 (1.8-7.7); PLATELET COUNT 244 X10'3 (140-440); RED BLOOD COUNT 3.36 X10'6 (4.70-6.10); RED CELL DISTRIBUTION WIDTH 19.2 % (11.5-14.5); WHITE BLOOD COUNT 5.4 X10'3 (4.5-11.0)
[2022-09-12 15:02] LABS: ANISOCYTOSIS 2+; PLATELET ESTIMATE NORMAL; POLYCHROMASIA 1+
[2022-09-12 15:04] LABS: ALANINE AMINOTRANSFERASE 109 U/L (12-78); ALBUMIN 3.3 G/DL (3.4-5.0); ALBUMIN/GLOBULIN RATIO 0.7 (1.1-1.5); ALKALINE PHOSPHATASE 80 IU/L (46-116); ANION GAP 11 (8-16); ASPARTATE AMINO TRANSFERASE 59 U/L (10-37); BILIRUBIN,TOTAL 0.3 MG/DL (0.1-1.0); BLOOD UREA NITROGEN 30 MG/DL (7-18); CALCIUM 9.4 MG/DL (8.5-10.1); CHLORIDE 97 MMOL/L (99-107); CREATININE 1.58 MG/DL (0.60-1.10); GLUCOSE 162 MG/DL (70-104); MAGNESIUM 1.6 MG/DL (1.5-2.4); POTASSIUM 4.8 MMOL/L (3.5-5.1); SODIUM 132 MMOL/L (135-145); TOTAL CARBON DIOXIDE 24.3 MMOL/L (24-32); TOTAL PROTEIN 7.9 G/DL (6.4-8.2); eGFR 43 ML/MIN
--- NOTE | 2022-09-12 16:51 | NUR ---
first contact pt is ao4 denies headache dizziness or lightheadedness. resp even unlabored. last episode of vomiting was in triage. no reports of nausea at this time. skinw/d/ ipink.
--- NOTE | 2022-09-12 18:30 | NUR ---
report to deanna elmore for continuation of care
[2022-09-12 18:42] VITALS: BP 139/69
== END 2022-09-12 18:45 | disposition home or self-care (01) ==
LOC: ER 14:24
DX: R11.2 Nausea with vomiting, unspecified (principal); I25.10 Atherosclerotic heart disease of native coronary artery without angina pectoris; E78.00 Pure hypercholesterolemia, unspecified; I10 Essential (primary) hypertension; R31.9 Hematuria, unspecified; E11.9 Type 2 diabetes mellitus without complications; G92.9 Unspecified toxic encephalopathy; M10.9 Gout, unspecified; Z87.440 Personal history of urinary (tract) infections; Z85.9 Personal history of malignant neoplasm, unspecified; Z98.890 Other specified postprocedural states; Z79.899 Other long term (current) drug therapy
CPT/HCPCS: 36415; 71045; 80053; 83735; 83880; 84484; 85008; 85025; 93005; 99285

== ENCOUNTER 2022-11-27 13:49 | Emergency (ER) | payer MEDICARE, BC ==
[~2022-11-27] VITALS: Ht 170.2 cm; Wt 72.3 kg
[2022-11-27 14:22] LABS: BASOPHILS % (AUTO) 0.1 % (0-1); EOSINOPHILS % (AUTO) 0.1 % (0-6); HEMATOCRIT 32.2 % (42.0-52.0); HEMOGLOBIN 10.1 g/dl (14.0-17.9); LYMPHOCYTES # (AUTO) 0.5 X10'3 (1.1-4.8); LYMPHOCYTES % (AUTO) 4.6 % (21-51); MEAN CORPUSCULAR HEMOGLOBIN 26.9 PG (27.0-31.0); MEAN CORPUSCULAR HGB CONC 31.5 g/dL (33.0-36.5); MEAN CORPUSCULAR VOLUME 85.4 FL (78-98); MEAN PLATELET VOLUME 8.1 FL (7.4-10.4); MONOCYTES # (AUTO) 0.4 X10'3 (0-0.9); MONOCYTES % (AUTO) 3.4 % (2-12); NEUTROPHILS # (AUTO) 10.3 X10'3 (1.8-7.7); NEUTROPHILS % (AUTO) 91.8 % (42-75); PLATELET COUNT 289 X10'3 (140-440); RED BLOOD COUNT 3.77 X10'6 (4.70-6.10); WHITE BLOOD COUNT 11.2 X10'3 (4.5-11.0)
[2022-11-27 14:36] LABS: ALANINE AMINOTRANSFERASE 109 U/L (12-78); ALBUMIN/GLOBULIN RATIO 0.6 (1.1-1.5); ALKALINE PHOSPHATASE 99 IU/L (46-116); ANION GAP 4 (8-16); ASPARTATE AMINO TRANSFERASE 127 U/L (10-37); BILIRUBIN,TOTAL 0.5 MG/DL (0.1-1.0); BLOOD UREA NITROGEN 25 MG/DL (7-18); BUN/CREATININE RATIO 22.7 (5.4-32.0); CALCIUM 9.7 MG/DL (8.5-10.1); CHLORIDE 97 MMOL/L (99-107); GLUCOSE 138 MG/DL (70-104); POTASSIUM 4.3 MMOL/L (3.5-5.1); SODIUM 131 MMOL/L (135-145); TOTAL CARBON DIOXIDE 30.1 MMOL/L (24-32); TOTAL PROTEIN 8.2 G/DL (6.4-8.2); eGFR 65 ML/MIN
[2022-11-27 14:43] LABS: MAGNESIUM 1.9 MG/DL (1.5-2.4)
--- NOTE | 2022-11-27 16:19 | NUR ---
Skin signs are WNL. Magna, warm, dry. Patient appears in no acute distress.
[2022-11-27] MEDS ORDERED: HYDROcodone/acetaminophen 5mg/325mg tablet PO ONE (16:30)
[2022-11-27] MEDS ORDERED: ondansetron 4mg rapidly disintigrating tab PO ONE (16:30)
[2022-11-27] MEDS ORDERED: meclizine 12.5mg tablet PO ONE (17:40)
[2022-11-27 18:02] LABS: CLARITY,URINE CLEAR (Clear); COLOR,URINE YELLOW (Yellow); GLUCOSE, URINE NEGATIVE (Neg); KETONES,URINE NEGATIVE (Neg); LEUKOCYTE ESTERASE ,URINE NEGATIVE (Neg); NITRITES, URINE NEGATIVE (Neg); OCCULT BLOOD,URINE SMALL (Neg); PROTEIN,URINE 30 mg/dl (Neg)
[2022-11-27 18:08] LABS: UA COLLECTION TYPE CLN CATCH MIDSTREAM
[2022-11-27 18:09] LABS: BACTERIA,URINE FEW /HPF (Neg); RBC,URINE 0-2 /HPF (0-2); SQUAMOUS EPITHELIAL CELL,UR FEW /LPF (FEW); WBC,URINE 0-4 /HPF (0-4)
--- NOTE | 2022-11-27 19:33 | NUR ---
LAB CALLED TO ASK ABOUT PENDING PROCALCITONIN SINCE [id number]
[2022-11-27] MEDS ORDERED: levoFLOXACIN 250mg tablet PO ONE (20:05)
[2022-11-27] MEDS ORDERED: LEVO-65 PO (20:10)
[2022-11-27] MEDS ORDERED: MECL-159 PO (20:10)
[2022-11-27 20:20] VITALS: BP 145/90
== END 2022-11-27 20:21 | disposition home or self-care (01) ==
LOC: ER 13:52
DX: R42 Dizziness and giddiness (principal); R07.9 Chest pain, unspecified; I11.9 Hypertensive heart disease without heart failure; I50.9 Heart failure, unspecified; E11.9 Type 2 diabetes mellitus without complications; G89.29 Other chronic pain; Z79.899 Other long term (current) drug therapy; Z79.1 Long term (current) use of non-steroidal anti-inflammatories (NSAID)
CPT/HCPCS: 36415; 71045; 71111; 71250; 80053; 81001; 82948; 83735; 83880; 84145; 84484; 85025; 93005; 99285; J8597

== ENCOUNTER 2022-12-08 03:04 | Emergency (ER) | payer MEDICARE, BC ==
[~2022-12-08] VITALS: Ht 170.2 cm; Wt 70.5 kg
[~2022-12-08 03:04] MED LIST changes: +MECL-159 PO
[2022-12-08 03:07] VITALS: BP 163/92
== END 2022-12-08 05:08 | disposition left against medical advice (07) ==
LOC: ER 03:04
DX: R31.9 Hematuria, unspecified (principal); Z53.21 Procedure and treatment not carried out due to patient leaving prior to being seen by health care provider
CPT/HCPCS: 99281

== ENCOUNTER 2023-02-08 07:53 | Emergency (ER) | payer MEDICARE, BC ==
[~2023-02-08] VITALS: Ht 170.2 cm; Wt 68.6 kg
[2023-02-08] MEDS ORDERED: LIDOcaine 2% 10ml TOPICAL JELLY (Urojet) MM ONE (08:30)
[2023-02-08] MEDS ORDERED: LidoCAINE 2% Topical Jelly 11mL syringe TOP ONE (08:35)
[2023-02-08] MEDS ORDERED: CefTRIAXone 2gm/D5W 50ml BAG 50 ML IV ONE (09:05)
[2023-02-08] MEDS ORDERED: normal saline 1000ML IV soln IV ONE (09:05)
[2023-02-08 10:00] VITALS: BP 117/57
[2023-02-08 10:02] LABS: CLARITY,URINE SLIGHTLY CLOUDY (Clear); GLUCOSE, URINE NEGATIVE (Neg); KETONES,URINE TRACE mg/dl (Neg); LEUKOCYTE ESTERASE ,URINE TRACE (Neg); NITRITES, URINE NEGATIVE (Neg); OCCULT BLOOD,URINE LARGE (Neg); PROTEIN,URINE 100 mg/dl (Neg)
[2023-02-08 10:04] LABS: UA COLLECTION TYPE STRAIGHT CATH
[2023-02-08 10:10] LABS: BASOPHILS # (AUTO) 0.1 X10'3 (0-0.2); BASOPHILS % (AUTO) 0.5 % (0-1); EOSINOPHILS # (AUTO) 0.1 X10'3 (0-0.9); EOSINOPHILS % (AUTO) 0.4 % (0-6); HEMATOCRIT 26.7 % (42.0-52.0); HEMOGLOBIN 8.7 g/dl (14.0-17.9); LYMPHOCYTES # (AUTO) 0.8 X10'3 (1.1-4.8); LYMPHOCYTES % (AUTO) 6.4 % (21-51); MEAN CORPUSCULAR HEMOGLOBIN 26.8 PG (27.0-31.0); MEAN CORPUSCULAR HGB CONC 32.6 g/dL (33.0-36.5); MEAN CORPUSCULAR VOLUME 82.3 FL (78-98); MEAN PLATELET VOLUME 8.4 FL (7.4-10.4); MONOCYTES # (AUTO) 0.4 X10'3 (0-0.9); NEUTROPHILS # (AUTO) 11.7 X10'3 (1.8-7.7); NEUTROPHILS % (AUTO) 89.7 % (42-75); PLATELET COUNT 243 X10'3 (140-440); RED BLOOD COUNT 3.24 X10'6 (4.70-6.10); RED CELL DISTRIBUTION WIDTH 18.5 % (11.5-14.5)
[2023-02-08 10:23] LABS: HYALINE CASTS 0-3 /LPF (NEGATIVE)
[2023-02-08 10:24] LABS: COLOR,URINE YELLOW (Yellow); SQUAMOUS EPITHELIAL CELL,UR MANY /LPF (FEW)
[2023-02-08 10:27] LABS: RBC,URINE 50-100 /HPF (0-2)
[2023-02-08 10:28] LABS: CAL OXALATE CRYSTALS 4+ /HPF (NEGATIVE)
[2023-02-08 10:31] LABS: BACTERIA,URINE 1+ /HPF (Neg); RENAL CELLS, URINE FEW /HPF; TRANSITIONAL EPI CELLS,URINE FEW /HPF
[2023-02-08 10:49] LABS: ALANINE AMINOTRANSFERASE 41 U/L (12-78); ALBUMIN 2.3 G/DL (3.4-5.0); ALBUMIN/GLOBULIN RATIO 0.5 (1.1-1.5); ALKALINE PHOSPHATASE 74 IU/L (46-116); ANION GAP 4 (8-16); ASPARTATE AMINO TRANSFERASE 57 U/L (10-37); BILIRUBIN,TOTAL 0.5 MG/DL (0.1-1.0); BLOOD UREA NITROGEN 34 MG/DL (7-18); BUN/CREATININE RATIO 22.5 (10.0-20.0); CALCIUM 8.4 MG/DL (8.5-10.1); CHLORIDE 98 MMOL/L (99-107); CREATININE 1.51 MG/DL (0.60-1.10); GLUCOSE 157 MG/DL (70-104); MAGNESIUM 1.8 MG/DL (1.5-2.4); POTASSIUM 4.6 MMOL/L (3.5-5.1); SODIUM 131 MMOL/L (135-145); TOTAL CARBON DIOXIDE 29.1 MMOL/L (24-32); TOTAL PROTEIN 6.5 G/DL (6.4-8.2); eGFR 45 ML/MIN
[2023-02-08] MEDS ORDERED: CefTRIAXone/D5W-Rocephin 1gm 50 ML IV ONE (11:20)
[2023-02-08] MEDS ORDERED: CEPH-585 PO ×2 (11:22)
[2023-02-11] MEDS ORDERED: ROSU20TA31 PO (15:40)
== END 2023-02-08 11:40 | disposition home or self-care (01) ==
LOC: ER 07:53
DX: N12 Tubulo-interstitial nephritis, not specified as acute or chronic (principal); E86.0 Dehydration; E78.00 Pure hypercholesterolemia, unspecified; I11.9 Hypertensive heart disease without heart failure; G89.29 Other chronic pain; E11.9 Type 2 diabetes mellitus without complications; Z79.899 Other long term (current) drug therapy; Z79.1 Long term (current) use of non-steroidal anti-inflammatories (NSAID)
CPT/HCPCS: 36415; 71045; 80053; 81001; 83605; 83735; 84145; 84484; 85025; 87040; 87088; 93005; 96365; 99285; J0696; J7030; A4340

== ENCOUNTER 2023-02-11 10:33 | Emergency (ER) | payer MEDICARE, BC ==
[~2023-02-11] VITALS: Ht 167.6 cm; Wt 70.5 kg
[~2023-02-11 10:33] MED LIST changes: +CEPH-585 PO
[2023-02-11 12:58] LABS: BASOPHILS % (AUTO) 0.1 % (0-1); EOSINOPHILS % (AUTO) 0.2 % (0-6); HEMATOCRIT 27.4 % (42.0-52.0); HEMOGLOBIN 8.4 g/dl (14.0-17.9); LYMPHOCYTES # (AUTO) 1.1 X10'3 (1.1-4.8); LYMPHOCYTES % (AUTO) 7.1 % (21-51); MEAN CORPUSCULAR HEMOGLOBIN 25.6 PG (27.0-31.0); MEAN CORPUSCULAR HGB CONC 30.8 g/dL (33.0-36.5); MEAN CORPUSCULAR VOLUME 83.1 FL (78-98); MONOCYTES # (AUTO) 0.3 X10'3 (0-0.9); MONOCYTES % (AUTO) 2.2 % (2-12); NEUTROPHILS # (AUTO) 14.1 X10'3 (1.8-7.7); NEUTROPHILS % (AUTO) 90.4 % (42-75); PLATELET COUNT 279 X10'3 (140-440); RED CELL DISTRIBUTION WIDTH 18.4 % (11.5-14.5); WHITE BLOOD COUNT 15.5 X10'3 (4.5-11.0)
[2023-02-11 13:16] LABS: ALANINE AMINOTRANSFERASE 59 U/L (12-78); ALBUMIN 2.4 G/DL (3.4-5.0); ALBUMIN/GLOBULIN RATIO 0.5 (1.1-1.5); ALKALINE PHOSPHATASE 110 IU/L (46-116); ANION GAP 6 (8-16); ASPARTATE AMINO TRANSFERASE 74 U/L (10-37); BILIRUBIN,TOTAL 0.3 MG/DL (0.1-1.0); BLOOD UREA NITROGEN 28 MG/DL (7-18); BUN/CREATININE RATIO 20.1 (10.0-20.0); CALCIUM 9.4 MG/DL (8.5-10.1); CHLORIDE 98 MMOL/L (99-107); CREATININE 1.39 MG/DL (0.60-1.10); GLUCOSE 128 MG/DL (70-104); POTASSIUM 4.6 MMOL/L (3.5-5.1); SODIUM 132 MMOL/L (135-145); TOTAL PROTEIN 6.9 G/DL (6.4-8.2); eGFR 50 ML/MIN
[2023-02-11] MEDS ORDERED: iohexol 300 MG/1 ML 50ml polymer ONE (13:19)
[2023-02-11] MEDS ORDERED: iohexol 300mg/ml 100ml inj. ONE (13:19)
[2023-02-11] MEDS ORDERED: normal saline 1000ML IV soln IVB ONE (13:50)
[2023-02-11] MEDS ORDERED: piperacillin/tazo 3.375gm/50ml 50 ML IV ONE (14:30)
[2023-02-11] MEDS ORDERED: vancomycin/NS 1 GM ADD-VANTAGE 250 ML IV ONE (14:30)
[2023-02-11] MEDS ORDERED: mag hydrox/Alum hydrox/simeth 30ml oral suspension PO PRN (15:05)
[2023-02-11] MEDS ORDERED: bisacodyl 10mg suppository rectal RC PRN (15:05)
[2023-02-11] MEDS ORDERED: magnesium 4gm in 100ml NS 100 ML IV PRN (15:05)
[2023-02-11] MEDS ORDERED: normal saline 1000ml 1,000 ML IV SCH (15:05)
[2023-02-11] MEDS ORDERED: HYDROcodone/acetaminophen 5mg/325mg tablet PO PRN (15:05)
[2023-02-11] MEDS ORDERED: ondansetron/PF 4mg/2ml inj IV PRN (15:05)
[2023-02-11] MEDS ORDERED: HYDROcodone/acetaminophen 10/325mg tab PO PRN (15:05)
[2023-02-11] MEDS ORDERED: HYDROmorphone/PF 0.2 MG/ML SYRINGE IV PRN (15:05)
[2023-02-11] MEDS ORDERED: potassium Cl 40MEQ/1/2NS 520ml 520 ML IV PRN (15:05)
[2023-02-11] MEDS ORDERED: ondansetron 4mg rapidly disintigrating tab PO PRN (15:05)
[2023-02-11] MEDS ORDERED: HYDROmorphone inj. 0.5 MG/0.5 ML DISP.SYRIN IV PRN (15:05)
[2023-02-11] MEDS ORDERED: potassium Cl 20 mEq SR tablet PO PRN ×2 (15:05)
[2023-02-11] MEDS ORDERED: acetaminophen 325mg tablet PO PRN ×2 (15:05)
[2023-02-11] MEDS ORDERED: magnesium Cl slow-release 64mg tablet PO PRN (15:05)
[2023-02-11] MEDS ORDERED: metoclopramide 5 mg/ml inj IV PRN (15:05)
[2023-02-11] MEDS ORDERED: magnesium 2GM in 50ml NS 50 ML IV PRN (15:05)
[2023-02-11] MEDS ORDERED: magnesium hydroxide 30ml (MOM) UD suspension PO PRN (15:05)
[2023-02-11] MEDS ORDERED: vancomycin 1,750 MG in NS 350ml IV soln IV ONE (15:25)
[2023-02-11] MEDS ORDERED: MSC30T PO (15:40)
[2023-02-11] MEDS ORDERED: PRE5T PO (15:40)
[2023-02-11] MEDS ORDERED: SENN-145 PO (15:40)
[2023-02-11] MEDS ORDERED: PANT40TA54 PO (15:40)
[2023-02-11] MEDS ORDERED: FLUT16SP10 NAS (15:40)
[2023-02-11] MEDS ORDERED: ASPI-1071 PO (15:40)
[2023-02-11] MEDS ORDERED: IRON150C8 PO (15:40)
[2023-02-11] MEDS ORDERED: ISOS30TA84 PO (15:40)
[2023-02-11] MEDS ORDERED: METO-384 PO (15:40)
[2023-02-11] MEDS ORDERED: UBID100T7 PO (15:40)
[2023-02-11] MEDS ORDERED: CLOP75TA34 PO (15:40)
[2023-02-11] MEDS ORDERED: SUCR1TAB PO (15:40)
[2023-02-11] MEDS ORDERED: ABIR250T2 PO (15:40)
[2023-02-11] MEDS ORDERED: AMIO100T PO (15:40)
[2023-02-11] MEDS ORDERED: ALLO300T8 PO (15:40)
[2023-02-11] MEDS ORDERED: NITR100C11 PO (15:40)
[2023-02-11] MEDS ORDERED: ROSU20TA73 PO (15:40)
[2023-02-11] MEDS ORDERED: CALC-159 PO (15:45)
[2023-02-11] MEDS ORDERED: piperacillin/tazo 3.375gm/50ml 50 ML IV SCH (16:00)
[2023-02-11 16:09] LABS: ANISOCYTOSIS 2+; HYPOCHROMASIA 1+; PLATELET ESTIMATE NORMAL; TOTAL CELLS COUNTED 100
[2023-02-11 16:11] LABS: SCHISTOCYTES FEW
[2023-02-11] MEDS ORDERED: LEUP30KI3 IM (17:03)
[2023-02-11 17:34] VITALS: BP 157/54
[2023-02-11] MEDS ORDERED: METR-349 PO (18:37)
[2023-02-11] MEDS ORDERED: LEVO-65 PO (18:37)
[2023-02-11] MEDS ORDERED: heparin, porcine 5000 units/ml vial SQ SCH (20:00)
[2023-02-11] MEDS ORDERED: docusate sod 100mg capsule PO SCH (20:00)
[2023-02-11] MEDS ORDERED: K and/or MAG REPLACEMENT MC SCH (20:00)
[2023-02-11] MEDS ORDERED: temazepam 15mg capsule PO PRN (21:00)
[2023-02-12] MEDS ORDERED: vancomycin/NS 1 GM ADD-VANTAGE 250 ML IV SCH (16:00)
[2023-02-13] MEDS ORDERED: VANCOMYCIN LEVEL IV ONE (15:30)
== END 2023-02-11 18:59 | disposition home or self-care (01) ==
LOC: ER 10:34 → ED HOLD 15:04 → UNDOADMIN 15:04 → UNDODISIN 18:56 → ED HOLD 18:59
DX: K65.1 Peritoneal abscess (principal); L02.415 Cutaneous abscess of right lower limb; E78.00 Pure hypercholesterolemia, unspecified; M70.61 Trochanteric bursitis, right hip; I10 Essential (primary) hypertension; I25.10 Atherosclerotic heart disease of native coronary artery without angina pectoris; G89.29 Other chronic pain; M10.9 Gout, unspecified; E11.9 Type 2 diabetes mellitus without complications; Z82.5 Family history of asthma and other chronic lower respiratory diseases; Z80.9 Family history of malignant neoplasm, unspecified
CPT/HCPCS: 36415; 73502; 73701; 74177; 80053; 83605; 83735; 84145; 85007; 85025; 87040; 93005; 96365; 96366; 96368; 99285; J2543; J3370; J3490; J7030; J7040; Q9967; G0378

== ENCOUNTER 2023-02-13 10:39 | Emergency (ER) | payer MEDICARE, BC ==
[2023-02-13] VITALS (8 sets, daily range): BP systolic 95–150; BP diastolic 43–75
[~2023-02-13] VITALS: Ht 170.2 cm; Wt 70.0 kg
[~2023-02-13 10:39] MED LIST changes: +ABIR250T2 PO; -ABIR500T PO; -ALLO100T PO; +ALLO300T8 PO; +AMIO100T PO; -AMLO10TA PO; +ASPI-1071 PO; +CALC-159 PO; -CALC-463 PO; -CEPH-585 PO; -CHOL2000 PO; +CLOP75TA34 PO; -FERR142T13 PO; +FLUT16SP10 NAS; -IBUP-1985 PO; +IRON150C8 PO; +ISOS30TA84 PO; -LANS30CA37 PO; +LEVO-65 PO; -MECL-159 PO; +METO-384 PO; -METO50TA7 PO; +METR-349 PO; -MORP30TA PO; +MSC30T PO; +NITR100C11 PO; +PANT40TA54 PO; +PRE5T PO; -PRED10TA PO; +ROSU20TA31 PO; +SENN-145 PO; +SUCR1TAB PO; +UBID100T7 PO
[2023-02-13] MEDS ORDERED: HYDROmorphone 1 mg/ml syringe IV ONE (11:45)
[2023-02-13 12:55] LABS: BASOPHILS # (AUTO) 0.1 X10'3 (0-0.2); BASOPHILS % (AUTO) 0.7 % (0-1); EOSINOPHILS # (AUTO) 0.1 X10'3 (0-0.9); EOSINOPHILS % (AUTO) 0.7 % (0-6); HEMATOCRIT 26.9 % (42.0-52.0); HEMOGLOBIN 8.2 g/dl (14.0-17.9); LYMPHOCYTES # (AUTO) 0.7 X10'3 (1.1-4.8); LYMPHOCYTES % (AUTO) 4.2 % (21-51); MEAN CORPUSCULAR HEMOGLOBIN 25.2 PG (27.0-31.0); MEAN CORPUSCULAR HGB CONC 30.4 g/dL (33.0-36.5); MEAN CORPUSCULAR VOLUME 82.9 FL (78-98); MEAN PLATELET VOLUME 7.7 FL (7.4-10.4); MONOCYTES # (AUTO) 0.3 X10'3 (0-0.9); NEUTROPHILS # (AUTO) 14.7 X10'3 (1.8-7.7); NEUTROPHILS % (AUTO) 92.4 % (42-75); PLATELET COUNT 268 X10'3 (140-440); RED BLOOD COUNT 3.24 X10'6 (4.70-6.10); RED CELL DISTRIBUTION WIDTH 18.8 % (11.5-14.5); WHITE BLOOD COUNT 15.9 X10'3 (4.5-11.0)
[2023-02-13 13:08] LABS: ALANINE AMINOTRANSFERASE 51 U/L (12-78); ALBUMIN 2.5 G/DL (3.4-5.0); ALBUMIN/GLOBULIN RATIO 0.6 (1.1-1.5); ALKALINE PHOSPHATASE 114 IU/L (46-116); ANION GAP 3 (8-16); ASPARTATE AMINO TRANSFERASE 54 U/L (10-37); BILIRUBIN,TOTAL 0.4 MG/DL (0.1-1.0); BLOOD UREA NITROGEN 28 MG/DL (7-18); BUN/CREATININE RATIO 18.3 (10.0-20.0); C-REACTIVE PROTEIN 24.16 MG/DL (0.0-0.5); CALCIUM 9.3 MG/DL (8.5-10.1); CHLORIDE 99 MMOL/L (99-107); CREATININE 1.53 MG/DL (0.60-1.10); GLUCOSE 142 MG/DL (70-104); POTASSIUM 4.3 MMOL/L (3.5-5.1); SODIUM 133 MMOL/L (135-145); TOTAL CARBON DIOXIDE 30.7 MMOL/L (24-32); TOTAL PROTEIN 6.8 G/DL (6.4-8.2); eGFR 44 ML/MIN
[2023-02-13 13:51] LABS: ANISOCYTOSIS 2+; PLATELET ESTIMATE NORMAL; ROULEAUX 1+; TOTAL CELLS COUNTED 100
[2023-02-13 13:52] LABS: HYPOCHROMASIA 1+; POLYCHROMASIA 1+; STOMATOCYTES FEW
--- NOTE | 2023-02-13 14:47 | NUR ---
IR TECHS AT THE BEDSIDE
[2023-02-13] MEDS ORDERED: LIDOcaine 1% 30ml preserv. free vial ONE (15:13)
[2023-02-13] MEDS ORDERED: ondansetron/PF 4mg/2ml inj IV PRN (15:40)
--- NOTE | 2023-02-23 08:20 | NUR ---
PT CALLED AND INFORMED THAT MEDICATION PRESCRIBED WAS RESISTANT TO THE BACTERIA CULTURED. INSTRUCTED TO STOP TAKING HIS KEFLEX AND LEVAQUIN AND A NEW RX WOULD BE CALLED INTO PHARMACY FOR HIM. PT IS ON HOSPIS AND REQUESTED THAT RX BE CALLED TO [facility] IN [place]. AUGMENTIN 875MG; 1 PO BID x10 DAYS, # 20, NO REFILLS WAS CALLED TO [facility] IN [place] REQUESTED.
--- NOTE | 2023-02-23 08:40 | NUR ---
PT CALLED REGARDING VISIT AND LABS ON 02/13/23, NO ANSWER, MSG LEFT TO RETURN CALL
== END 2023-02-13 17:28 | disposition home or self-care (01) ==
LOC: ER 10:41
DX: T84.51XA Infection and inflammatory reaction due to internal right hip prosthesis, initial encounter (principal); C61 Malignant neoplasm of prostate; D72.829 Elevated white blood cell count, unspecified; E78.00 Pure hypercholesterolemia, unspecified; I10 Essential (primary) hypertension; E11.9 Type 2 diabetes mellitus without complications
CPT/HCPCS: 10160; 36415; 75989; 80053; 83605; 84145; 85007; 85025; 85651; 86140; 87040; 87070; 87077; 87186; 96374; 99285; C1729; C1769; J1170; J3490; J7040; A4615